=== PATIENT | male | born 1985 | race African-American/Black ===

== ENCOUNTER 2021-10-27 09:46 | Emergency (ER) | payer SELFPAY ==
[~2021-10-27] VITALS: Ht 182.9 cm; Wt 81.6 kg
[2021-10-27 10:21] VITALS: BP 121/82
[2021-10-27] MEDS ORDERED: cefTRIAXone SOD 1,000 MG VL IM ONE (13:15)
[2021-10-27] MEDS ORDERED: DexAMETHasone SOD PHOS 10MG/1ML VIAL INJ IM ONE (13:15)
== END 2021-10-27 13:26 | disposition home or self-care (01) ==
LOC: ER 09:46 → EDBD 09:46 → ER 13:26
DX: J18.9 Pneumonia, unspecified organism (principal); J03.90 Acute tonsillitis, unspecified; F17.210 Nicotine dependence, cigarettes, uncomplicated; Z20.822 Contact with and (suspected) exposure to COVID-19
CPT/HCPCS: 36415; 71046; 87426; 96372; 99284; J0696; J1100

== ENCOUNTER 2021-11-02 17:38 | Emergency (ER) | payer SELFPAY ==
[~2021-11-02] VITALS: Ht 182.9 cm; Wt 86.2 kg
[2021-11-02 19:06] LABS: Basophils # (auto) 0.1 10 ^3/uL (0-0.2); Basophils % (auto) 0.7 % (0.0-2.0); Eosinophils # (auto) 0.1 10 ^3/uL (0-0.8); Eosinophils % (auto) 0.5 % (0.0-7.0); Hematocrit 39.6 % (41.0-53.0); Hemoglobin 13.3 g/dL (13.5-17.5); Lymphocytes # (auto) 2.8 10 ^3/uL (0.4-5.4); Lymphocytes % (auto) 28.4 % (10.0-50.0); Mean Corpuscular Hemoglobin 29.4 pg (28.0-32.0); Mean Corpuscular Hgb Conc. 33.7 g/dL (32.0-36.0); Mean Corpuscular Volume 87.4 fL (80.0-100.0); Monocytes # (auto) 1.3 10 ^3/uL (0-1.3); Monocytes % (auto) 12.9 % (0.0-12.0); Neutrophils # (auto) 5.7 10 ^3/uL (1.6-8.6); Neutrophils % (auto) 57.5 % (37.0-80.0); Nucleated Red Blood Cells % 0.2 %; Red Blood Cells 4.53 10^6/uL (4.5-5.90); Red Cell Distribution Width 13.5 % (11.8-14.3); White Blood Cell 9.9 10^3/uL (4.4-10.8)
[2021-11-02 19:14] LABS: Albumin 2.9 g/dL (3.4-5.0); Calcium 8.3 mg/dL (8.5-10.1)
[2021-11-02 19:18] LABS: BUN/Creatinine Ratio 18.8
[2021-11-02 19:31] LABS: Bilirubin, Total 0.2 mg/dL (0.2-1.0); Total Protein 6.5 g/dL (6.4-8.2)
[2021-11-02 20:32] LABS: Potassium 3.9 mmol/L (3.5-5.1)
[2021-11-02 20:37] LABS: BUN/Creatinine Ratio 18.1; CRP High Sensitivity 0.41 mg/dL (< 0.3); Calcium 7.8 mg/dL (8.5-10.1)
[2021-11-02] MEDS ORDERED: IBUP600T28 PO (22:29)
[2021-11-02 22:33] VITALS: BP 116/71
== END 2021-11-02 23:00 | disposition home or self-care (01) ==
LOC: ER 17:38
DX: I80.3 Phlebitis and thrombophlebitis of lower extremities, unspecified (principal); F17.210 Nicotine dependence, cigarettes, uncomplicated
CPT/HCPCS: 36415; 80048; 80053; 83605; 85025; 85652; 86141; 93971

== ENCOUNTER 2023-09-12 14:52 | Emergency (ER) | payer BC, MEDICAID ==
[~2023-09-12] VITALS: Ht 182.9 cm; Wt 85.0 kg
[~2023-09-12 14:52] MED LIST: IBUP1TAB5 PO
[2023-09-12] MEDS ORDERED: IBUPROFEN 800 MG TAB PO ONE (16:45)
[2023-09-12] MEDS ORDERED: ACET500T58 PO (16:53)
[2023-09-12] MEDS ORDERED: IBUP-1456 PO (16:53)
[2023-09-12 17:14] VITALS: BP 129/79; PULSE 91; RESP 18; TEMP 97.5; O2SAT 99
== END 2023-09-12 18:09 | disposition home or self-care (01) ==
LOC: ER 14:52
DX: S63.639A Sprain of interphalangeal joint of unspecified finger, initial encounter (principal); W19.XXXA Unspecified fall, initial encounter; Y93.89 Activity, other specified; Y92.89 Other specified places as the place of occurrence of the external cause; Y99.8 Other external cause status
CPT/HCPCS: 73130